=== PATIENT | male | born 1945 | race Caucasian/White ===

== ENCOUNTER 2017-07-05 13:46 | Emergency (ER) | payer MEDICARE ==
[~2017-07-05] VITALS: Ht 180.3 cm; Wt 90.0 kg
[2017-07-05 13:52] VITALS: BP 141/65; PULSE 74; RESP 17; TEMP 97.9; O2SAT 98
[2017-07-05] MEDS ORDERED: METF1000 PO (14:25)
[2017-07-05] MEDS ORDERED: ASPI81TA16 PO (14:25)
[2017-07-05] MEDS ORDERED: METO-309 PO (14:25)
[2017-07-05] MEDS ORDERED: LISI2.5T3 PO (14:25)
[2017-07-05] MEDS ORDERED: SODIUM CHLOR 0.9% 1000 ML INJ 1,000 ML IV SCH (14:38)
[2017-07-05] MEDS ORDERED: DICYCLOMINE HCL 10 MG CAP PO ONE (14:45)
[2017-07-05] MEDS ORDERED: FAMOTIDINE 20 MG/2 ML VIAL IV PUSH ONE (14:45)
[2017-07-05] MEDS ORDERED: ONDANSETRON HCL 4 MG/2 ML VIAL IVP ONE (14:45)
[2017-07-05] MEDS ORDERED: SODIUM CHLORIDE 0.9% FLUSH 10 ML FLUSH IV FLUSH PRN (14:45)
--- NOTE | 2017-07-05 14:51 | PD ---
HPI Chief Complaint: GI Complaint Time Seen by Provider: 14:28 Travel History International Travel<30 days: No Contact w/Intl Traveler<30days: No Traveled to known affect area: No History of Present Illness HPI 71-year-old male patient of the [place], presents emergency department with nausea and diarrhea since late last night. Patient continues to have discomfort and cramping in the abdomen, as well as mild nausea. Patient had no vomiting. Patient denies urinary symptoms. Patient denies fever, chills, chest pain, shortness of breath, or other constitutional symptoms. Pain is about a 3 out of 10. Last episode of diarrhea was 9 AM this morning. Patient denies eating anything unusual yesterday. Patient denies history of antibiotic use in the last 6 months. No history of C. difficile in the past. Patient has no known drug allergies. PFSH Past Medical History Alzheimer's Disease: Yes Cardiovascular Problems: Yes (ANGIOPLASTY) Diabetes: Yes Patient Takes Glucophage: Yes Diminished Hearing: No GERD: Yes Hypertension: Yes Ulcer: Yes Tetanus Vaccination: < 5 Years Influenza Vaccination: Yes Past Surgical History Cardiac Surgery: Yes (ANGIOPLASTY, [place]) Social History Alcohol Use: Yes (BEER ON OCCASION) Tobacco Use: Yes (1 PPD) Substance Use: No Allergies-Medications (Allergen,Severity, Reaction): Coded Allergies: No Known Allergies (Unverified , 07/05/17) Reported Meds & Prescriptions Reported Meds & Active Scripts Active Reported Aspirin Adult Low Strength (Aspirin) 81 Mg Tabdr 81 Mg PO DAILY Lisinopril Unknown Strength Tab 1 Tab PO DAILY Metformin (Metformin HCl) 1,000 Mg Tab 1,000 Mg PO BID Lopressor (Metoprolol Tartrate) 50 Mg Tab 25 Mg PO BID Review of Systems Except as stated in HPI: all other systems reviewed are Neg General / Constitutional: No: Fever, Chills Eyes: No: Visual changes HENT: No: Headaches Cardiovascular: No: Chest Pain or Discomfort Respiratory: No: Shortness of Breath Gastrointestinal: Positive: Nausea, Diarrhea, Abdominal Pain, Loss of Appetite , No: Vomiting, Constipation, Indigestion, Dysphagia Genitourinary: No: Urgency, Frequency, Dysuria, Decreased Urinary Output Musculoskeletal: No: Pain Skin: No Rash Neurologic: No: Weakness Psychiatric: No: Depression Endocrine: No: Polydipsia Hematologic/Lymphatic: No: Easy Bruising Physical Exam Narrative GENERAL: Patient appears in no acute distress per SKIN: Warm and dry. Normal color. Normal turgor. HEAD: Atraumatic. Normocephalic. EYES: Pupils equal and round. No scleral icterus. No injection or drainage. ENT: No nasal bleeding or discharge. Mucous membranes pink and moist. Pharynx is clear. Airway is patent. NECK: Trachea midline. Supple and nontender. CARDIOVASCULAR: Regular rate and rhythm. RESPIRATORY: No accessory muscle use. Clear to auscultation. Breath sounds equal bilaterally. GASTROINTESTINAL: Abdomen soft, mild to moderate nonspecific tenderness, nondistended. No point tenderness or rebound. No CVA tenderness. Bowel sounds are somewhat hyperactive in all quadrants. Hepatic and splenic margins not palpable. MUSCULOSKELETAL: Extremities without clubbing, cyanosis, or edema. No obvious deformities. NEUROLOGICAL: Awake and alert. No obvious cranial nerve deficits. Motor grossly within normal limits. Five out of 5 muscle strength in the arms and legs. Normal speech. PSYCHIATRIC: Appropriate mood and affect; insight and judgment normal. Data Data Last Documented VS Vital Signs Date Time Temp Pulse Resp B/P (MAP) Pulse Ox O2 Delivery O2 Flow Rate FiO2 07/05/17 17:08 78 19 121/70 (87) 97 07/05/17 15:40 Room Air 07/05/17 13:52 97.9 Orders Orders Complete Blood Count With Diff (07/05/17 14:38) Comprehensive Metabolic Panel (07/05/17 14:38) Lipase (07/05/17 14:38) Lactic Acid (07/05/17 14:38) Urinalysis - C+S If Indicated (07/05/17 14:38) Ct Abd/Pel W Iv Contrast(Rout) (07/05/17 14:38) Iv Access Insert/Monitor (07/05/17 14:38) Ecg Monitoring (07/05/17 14:38) Oximetry (07/05/17 14:38) Ondansetron Inj (Zofran Inj) (07/05/17 14:45) Sodium Chlor 0.9% 1000 Ml Inj (Ns 1000 M (07/05/17 14:38) Sodium Chloride 0.9% Flush (Ns Flush) (07/05/17 14:45) Famotidine Inj (Pepcid Inj) (07/05/17 14:45) Dicyclomine (Bentyl) (07/05/17 14:45) Labs Laboratory Tests Test 07/05/17 15:30 07/05/17 15:38 White Blood Count 7.2 TH/MM3 Red Blood Count 4.93 MIL/MM3 Hemoglobin 12.6 GM/DL Hematocrit 37.9 % Mean Corpuscular Volume 76.8 FL Mean Corpuscular Hemoglobin 25.5 PG Mean Corpuscular Hemoglobin Concent 33.2 % Red Cell Distribution Width 15.0 % Platelet Count 240 TH/MM3 Mean Platelet Volume 9.2 FL Neutrophils (%) (Auto) 61.6 % Lymphocytes (%) (Auto) 24.7 % Monocytes (%) (Auto) 8.2 % Eosinophils (%) (Auto) 4.0 % Basophils (%) (Auto) 1.5 % Neutrophils # (Auto) 4.4 TH/MM3 Lymphocytes # (Auto) 1.8 TH/MM3 Monocytes # (Auto) 0.6 TH/MM3 Eosinophils # (Auto) 0.3 TH/MM3 Basophils # (Auto) 0.1 TH/MM3 CBC Comment DIFF FINAL Differential Comment MDM Medical Decision Making Medical Screen Exam Complete: Yes Emergency Medical Condition: Yes Differential Diagnosis Gastroenteritis. Nausea. Diarrhea. Urinary tract infection. Colitis. Narrative Course Patient is medically stable at time of exam. Labs ordered including CBC, CMP, lactic acid, lipase, and urinalysis. IV access is obtained the patient is given 4 mg Zofran IV, 10 mg Bentyl p.o., [address] of the abdomen/pelvis with IV contrast is ordered. CBC is unremarkable except for hemoglobin of 12.6, hematocrit 37.9. MCV is 76.8 and MCH is 25.5. Monocytes are elevated at 8.2% 1700 hrs., patient states he feels better and wants to leave AMA CT has not been performed. Patient signed AMA paperwork and leave the department Diagnosis Primary Impression: Left against medical advice Disposition: 07 AGAINST MEDICAL ADVICE Condition: Stable Meet Webster Jul 05, 2017 14:51
[2017-07-05 15:40] VITALS: O2SAT 96
[2017-07-05 15:47] LABS: AUTOMATED NEUTROPHIL # 4.4 TH/MM3 (1.8-7.7); BASOPHIL # 0.1 TH/MM3 (0-0.2); BASOPHIL % 1.5 % (0.0-2.0); EOSINOPHIL # 0.3 TH/MM3 (0-0.4); HEMATOCRIT 37.9 % (39.0-51.0); HEMOGLOBIN 12.6 GM/DL (13.0-17.0); LYMPH % 24.7 % (9.0-44.0); LYMPHOCYTE # 1.8 TH/MM3 (1.0-4.8); MEAN CELL VOLUME 76.8 FL (80.0-100.0); MEAN CORPUSCULAR HEMOGLOBIN 25.5 PG (27.0-34.0); MEAN CORPUSCULAR HGB CONC 33.2 % (32.0-36.0); MEAN PLATELET VOLUME 9.2 FL (7.0-11.0); MONO % 8.2 % (0.0-8.0); MONOCYTE # 0.6 TH/MM3 (0-0.9); NEUT % 61.6 % (16.0-70.0); PLATELET COUNT 240 TH/MM3 (150-450); RED BLOOD COUNT 4.93 MIL/MM3 (4.50-5.90); WHITE BLOOD COUNT 7.2 TH/MM3 (4.0-11.0)
[2017-07-05 17:08] VITALS: BP 121/70
== END 2017-07-05 17:08 | disposition left against medical advice (07) ==
LOC: NEPD 13:46
DX: R11.0 Nausea (principal); R19.7 Diarrhea, unspecified; R10.9 Unspecified abdominal pain; G30.9 Alzheimer's disease, unspecified; F02.80 Dementia in other diseases classified elsewhere, unspecified severity, without behavioral disturbance, psychotic disturbance, mood disturbance, and anxiety; E11.9 Type 2 diabetes mellitus without complications; K21.9 Gastro-esophageal reflux disease without esophagitis; I10 Essential (primary) hypertension; F17.200 Nicotine dependence, unspecified, uncomplicated
CPT/HCPCS: 85025; 96361; 96374; 99284; J2405; J7030